=== PATIENT | male | born 1990 | race African-American/Black ===

== ENCOUNTER 2021-09-22 16:37 | Emergency (ER) | payer OTHER ==
[~2021-09-22] VITALS: Ht 180.3 cm; Wt 97.5 kg
[2021-09-22 19:24] LABS: HEMATOCRIT 46.7 % (42.0-52.0); HEMOGLOBIN 15.5 gm/dL (14.0-18.0); MCH 30.3 pg (26.0-34.0); MCHC 33.2 g/dL (28.0-37.0); MCV 91.2 fL (80.0-100.0); RBC 5.12 mil/uL (4.50-6.00); RDW 12.9 % (10.5-14.5); WBC 3.5 thou/uL (4.0-11.0)
[2021-09-22 19:33] LABS: CREATININE 1.2 mg/dL (0.7-1.3); POTASSIUM 4.4 mmol/L (3.5-5.1)
[2021-09-22 19:43] LABS: ALBUMIN 3.7 g/dL (3.4-5.0); TOTAL BILIRUBIN 0.2 mg/dL (0.2-1.0); TOTAL PROTEIN 7.5 g/dL (6.4-8.2)
[2021-09-22 20:43] VITALS: BP 152/90
--- NOTE | 2021-09-23 07:07 | EKG ---
[address] [place] [address] ELECTROCARDIOGRAM REPORT Name: JAYLAN EVANS Room #: GUIDO Hawthorne#: [id number] Admission: 09/22/21 Attend Phys: Discharge: 09/22/21 Date of : [birth year] Report #: [id number] [facility] ED Test Date: 2021-09-22 Test Time: 19:28:11 Pat Name: JAYLAN EVANS Department: Room: Gender: M Monogram Maker: HAYDEN : 1990 Requested By: Rosangela Arreola Order Number: [id number] MD: Carlito Cunningham Measurements Intervals [place] Rate: 88 P: 54 WV: 152 QRS: 54 QRSD: 74 T: 30 QT: 328 QTc: 397 Interpretive Statements Sinus rhythm No previous ECG available for comparison Electronically Signed On 09-23-2021 7:06:49 ACCOUNTING OFFICER by Carlito Cunningham [email or web address] <ELECTRONICALLY SIGNED> By: Carlito Cunningham MD, [facility] 09/23/21705 27 27 Carlito Cunningham MD, FACC /EPI
== END 2021-09-22 20:44 | disposition home or self-care (01) ==
LOC: ER 16:37
PROVIDERS: Nurse Practitioner Family
DX: U07.1 COVID-19 (principal); R06.00 Dyspnea, unspecified